=== PATIENT | male | born 1950 | race Caucasian/White ===

== ENCOUNTER → 2016-11-21 | Outpatient (CLI) | payer OTHER, MEDICARE | LOC: GIMAGING 09:05 | PROVIDERS: ATTEND Registered Nurse | DX: R05 Cough (principal); R06.2 Wheezing | CPT/HCPCS: 71020-PO ==

== ENCOUNTER → 2018-02-06 | Outpatient (CLI) | payer OTHER, MEDICARE ==
[~2018-02-06] MED LIST: IOPAMIDOL (ISOVUE-300) 100 ML BTL ONE
== END ==
LOC: FIMAGING 13:19
PROVIDERS: ATTEND Surgery
DX: K57.20 Diverticulitis of large intestine with perforation and abscess without bleeding (principal); K76.9 Liver disease, unspecified
CPT/HCPCS: 74177; Q9967; 82565-PO